=== PATIENT | female | born 1940 | race Caucasian/White ===

== ENCOUNTER 2018-12-24 12:13 | Inpatient (IN) ==
[2018-12-24] MEDS ORDERED: NALOXONE HCL 0.4 MG/1 ML VIAL/CARP IV PRN (12:33)
[2018-12-24] MEDS ORDERED: OXYCODONE HCL IR 5 MG TAB (IMMEDIATE RELEASE) PO PRN (12:33)
[2018-12-24] MEDS ORDERED: MAGNESIUM HYDROXIDE SUSP 30 ML UDC PO PRN (12:33)
[2018-12-24] MEDS ORDERED: ACETAMINOPHEN 325 MG TAB PO PRN (12:33)
[2018-12-24] MEDS ORDERED: bisacodyL 10 MG SUPP PR PRN (12:33)
--- NOTE | 2018-12-24 12:56 | History & Physical Report ---
Date of Service December 24, 2018 Assessment & Plan (1) Displaced fracture of right femoral neck: 78-year-old female with right femoral neck fracture, displaced, Garden 3. We discussed the risks of surgery in detail. Please see clinic note from today. She will be admitted for preoperative testing and will be on-call tomorrow to the operating room. She is on chronic aspirin therapy. Plan for DVT prophylaxis to be mechanical today. We will start routine DVT prophylaxis postoperatively. She should be nonweightbearing and out of bed with max assist. N.p.o. at midnight History of Present Illness Chief Complaint: Right hip femoral neck fracture Primary Care Provider: Erick Durant MD Otherwise healthy and moderately active female sustained a fall when her dog ran into her. This resulted in her falling on her posterior lateral aspect of her right hip, which resulted in immediate pain and difficulty weightbearing. She attempted to do home exercises and stretching however she persisted with pain with weightbearing. She denies any previous hip pain or diagnoses of arthritis. She reports the pain as sharp and located in her groin and the posterior lateral aspect of her buttock. She denies any numbness or tingling or gross deformity. She did remark that she noticed some bruising about the hip. Allergies Allergy/AdvReac Type Severity Reaction Status Date / Time No Known Allergies Allergy Verified 12/24/18 10:44 Home Medications Home Medications Medication Instructions Recorded Confirmed Type hydrocodone-acetaminophen [Doole] 1 - 2 tab PO Q4H PRN 12/07/17 12/07/17 History lisinopril 20 mg PO HS 12/07/17 12/24/18 History amlodipine 5 mg tablet 5 mg PO DAILY 12/24/18 12/24/18 History Past Med/Surg History Medical History Distal radius fracture, left Hypertension (Chronic) Cataract Squamous cell skin cancer, face Surgical History History of cataract extraction (Resolved) History of tonsillectomy (Resolved) 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 Social History Preferred Language: [place] Communication Ability: Effective Maintenance Technician 2Nd Shift Required: No Beliefs That Will Affect Care: None Current Living Situation: Spouse Feels Safe at Home: Yes Smoking Status: Former smoker Hx Alcohol Use: Yes Alcohol type: wine Hx Substance Use: Yes substance use type: does not use Review of Systems All systems reviewed & are unremarkable except as noted in HPI & below Physical Exam Physical Exam: She is in no acute distress, alert and oriented x3, and accompanied by her today She ambulates with an antalgic gait and shortened stance phase on the right lower extremity. Left hip: She can perform a straight leg raise with ease and has no discomfort with logroll. Right symptomatic hip: There is no skin compromise. She has pain with logroll in the supine position. She is difficulty with straight leg raise and has a knee lag with attempts. She has full active range of motion of her knee and no effusion. She is full active range of motion of her ankle. She is neur ovascular intact.
--- NOTE | 2018-12-24 16:03 | XRay Report ---
XR chest 1V portable HISTORY: preop, hx of smoking COMPARISON: None. FINDINGS: The lungs are hyperexpanded with apical predominant emphysematous changes. No focal lung co nsolidations to suggest pneumonia. No evidence for pulmonary edema. The heart is top normal in size. No pleural effusions. No pneumothorax. Question of a 5 mm nodular density within the right lung apex. This could be due to overlapping soft tissue. IMPRESSION: 1. No acute process within the chest. 2. Emphysema. 3. Questionable 5 mm nodular density at the right lung apex. Follow-up nonemergent PA and lateral vie ws of the chest are recommended for confirmation. Electronically signed by: Ryan Jiang M.D. 12/24/2018 4:01 PM
[2018-12-24 20:20] LABS: Basophils # (auto) 0.07 K/uL (0-0.2); Eosinophils # (auto) 0.26 K/uL (0-0.5); Eosinophils % (auto) 3.7 %; Hematocrit (blood only) 37.4 % (37-47); Hemoglobin 12.7 g/dL (12.0-16.0); Immature Granulocytes # (auto) 0.01 K/uL (0.00-0.02); Immature Granulocytes % (auto) 0.1 %; Lymphocytes # (auto) 1.92 K/uL (1.2-3.4); Lymphocytes % (auto) 27.1 %; Mean Corpuscular Hemoglobin 30.6 pg (25-34); Mean Corpuscular Volume 90.1 fL (80-100); Mean Platelet Volume 8.9 fL (7.4-10.4); Monocytes # (auto) 0.64 K/uL (0.11-0.59); Neutrophils # (auto) 4.18 K/uL (1.4-6.5); Neutrophils % (auto) 59.1 %; Platelet Count 271 K/uL (130-400); RDW Standard Deviation 42.5 fL (36.4-46.3); Red Blood Count 4.15 M/uL (4.2-5.4); White Blood Count 7.08 K/uL (4.8-10.8)
[2018-12-24 20:33] LABS: Partial Thromboplastin Ratio 0.9; Partial Thromboplastin Time 24.5 Seconds (21.0-31.0); Prothrombin Time 10.4 Seconds (9.0-12.0)
[2018-12-24 20:37] LABS: Albumin Level 3.6 gm/dl (3.4-5.0); BUN Creatinine Ratio 37.9 (10-20); Calcium 9.4 mg/dl (8.5-10.1); Creatinine Clr Calc Pharmacy 34.7 ml/min; Est GFR (African American) 67.3; Potassium 3.9 mmol/L (3.5-5.1)
[2018-12-24 20:40] LABS: Albumin Globulin Ratio 0.9 (0.9-2); Bilirubin,Total 0.3 mg/dl (0.2-1); Globulin 4.2 gm/dl (2.5-4.0); Total Protein 7.8 gm/dl (6.4-8.2)
[2018-12-24] MEDS: lisinopriL 20 MG TAB PO SCH (20:51)
[2018-12-24] MEDS: DOCUSATE SODIUM/SENNA 50/8.6MG TAB PO SCH (20:51)
[2018-12-24] MEDS ORDERED: AMLODIPINE BESYLATE 5 MG TAB PO SCH (21:00)
[2018-12-25] MEDS: LACTATED RINGER'S 1,000 ML IV SCH ×2 (00:03→10:10)
[2018-12-25] MEDS ORDERED: CEFAZOLIN 2000MG 2,000 MG/15 ML SYR IV SCH (06:00)
[2018-12-25] MEDS ORDERED: BUPIVACAINE 0.5 % 5 MG/1 ML PF 10ML VIAL ONE ×2 (07:38→15:18)
[2018-12-25] MEDS ORDERED: TRANEXAMIC ACID 1,000 MG in 0.9 % SODIUM CHLORIDE 100 ML IV SCH (10:00)
--- NOTE | 2018-12-25 11:33 | Orthopedic Progress Note ---
Date of Service December 25, 2018 Assessment & Plan (1) Displaced fracture of right femoral neck: Preop today for right hip hemiarthroplasty. Continue to be n.p.o. Plan for DVT prophylaxis after surgery. Braden Fowler reports no issues overnight. She did have a period of hypertension to systolic over 180 reported by the nurse to me however she reports no symptoms. She stated today that is common for her blood pressure to elevate when she is anxious. She states her blood pressure is better when she is out and about and walking. Today she reports no headache, palpitations, or syncope. She is comfortable. We had a conversation about surgery risks and benefits once again. She is ready to go. Review of Systems Review of Systems: All systems reviewed & are unremarkable except as noted in HPI & below Physical Exam Physical Exam: She is supine in bed No acute distress, alert and oriented, cooperative. Right lower extremity: The hip is no overlying skin trauma of concern. There is slight ecchymosis. Surgical signature was placed. She is full active range of motion her ankle. She is neurovascular intact Results & Data Vital Signs (Past 12 Hours) Vital Signs Temp Pulse Resp BP Pulse Ox 12/25/18 07:11 36.9 C 72 16 155/78 H 100 PG Care Time/CCT Total # of Minutes Spent Total Time Spent with Patient: Total time spent is greater than 50% in coordination of care (as documented) at patient's floor/unit and/or counseling patient:
[2018-12-25] MEDS ORDERED: THROMBIN FOR SOLN 20000 UNIT KIT ONE (14:57)
[2018-12-25] MEDS ORDERED: BACITRACIN INJ 50,000 UNIT VIAL ONE (14:57)
[2018-12-25] MEDS ORDERED: LIDOCAINE HCL 2% 2 ML VIAL/AMP(20MG/ML) INFIL ONE (15:03)
[2018-12-25] MEDS ORDERED: MIDAZOLAM HCL 1 MG/ML 2ML VIAL ONE (15:03)
[2018-12-25] MEDS ORDERED: fentaNYL citrate 100 MCG/2 ML VIAL ONE ×2 (15:03→17:47)
[2018-12-25] MEDS ORDERED: PROPOFOL IV EMULSION 10 MG/ML 20 ML VIAL IV ONE (15:03)
[2018-12-25] MEDS ORDERED: ONDANSETRON INJ 2 MG/ML 2 ML VIAL ONE (15:03)
[2018-12-25] MEDS ORDERED: BUPIVACAINE/EPINEPHRINE 0.25% 1:200,000 30 ML VIAL ONE (15:21)
--- NOTE | 2018-12-25 16:09 | Anesthesiology Consultation ---
Date of Service December 25, 2018 Assessment & Plan (1) Encounter for pre-operative examination: Chart Review Chart Review: Acceptable Risk for Surgery and Patient NOT seen in Pre Admission Testing Consults Requested none History Surgery Operation Date: 12/25/18 07:00 Proposed Procedures p Right Hip Hemiarthroplasty - Benson Campos Height/Weight Height: 5 ft 5 in Weight: 45.5 kg Allergies Allergy/AdvReac Type Severity Reaction Status Date / Time No Known Allergies Allergy Verified 12/24/18 10:44 Medications Home Medications Medication Instructions Recorded Confirmed Last Taken lisinopril 20 mg PO HS 12/07/17 12/24/18 12/23/18 20:00 amlodipine 5 mg tablet 5 mg PO DAILY 12/24/18 12/24/18 12/23/18 20:00 Active Medications Generic Name Dose Route Start Last Admin Trade Name Freq PRN Reason Stop Dose Admin Amlodipine Besylate 5 mg 12/24/18 21:00 12/24/18 20:51 Norvasc PO 01/23/19 20:59 5 mg HS JUS Administration Lactated Ringer's 1,000 mls @ 100 mls/hr 12/25/18 00:00 12/25/18 10:10 Lr IV 01/24/19 00:00 100 mls/hr .Q10H JUS Administration Lisinopril 20 mg 12/24/18 21:00 12/24/18 20:51 Zestril PO 01/23/19 20:59 20 mg HS JUS Administration Senna/Docusate Sodium 2 tab 12/24/18 21:00 12/24/18 20:51 Senokot S PO 01/23/19 20:59 Not Given HS JUS NPO Date Last Intake of Fluids: 12/24/18 Time Last Intake of Fluids: 23:59 Date Last Intake of Solids: 12/24/18 Time Last Intake of Solids: 23:59 Past Medical History Medical History Distal radius fracture, left Hypertension (Chronic) Cataract Squamous cell skin cancer, face Past Surgical History Surgical History History of cataract extraction (Resolved) History of tonsillectomy (Resolved) 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 Social History Smoking Status: Never smoker Hx Alcohol Use: Yes Alcohol type: wine alcohol intake frequency: holidays/special occasions only Hx Substance Use: No substance use type: does not use Physical Exam Vital Signs Last Vital Signs Temp 36.9 C 12/25/18 07:11 Pulse 72 12/25/18 07:11 Resp 16 12/25/18 07:11 BP 155/78 H 12/25/18 07:11 Pulse Ox 100 12/25/18 07:11 Testing Laboratory Results 12/24/18 20:11 12/24/18 20:11 PT 10.4 Seconds (9.0-12.0) 12/24/18 20:11 INR 1.0 (0.9-1.1) 12/24/18 20:11 APTT 24.5 Seconds (21.0-31.0) 12/24/18 20:11 Blood Type O Positive 12/24/18 20:11 Antibody Screen NEGATIVE 12/24/18 20:11 12/24/18 Unknown Urine Culture - Preliminary Urine,Clean Catch Pin-point growth present, reincubating.
[2018-12-25] MEDS ORDERED: PHENYLEPHRINE 100MCG/ML 5ML SYR ONE (16:12)
[2018-12-25] MEDS ORDERED: ePHEDrine sulfate 50 MG/ML AMP ONE (16:12)
[2018-12-25] MEDS ORDERED: BUPIVACAINE/EPINEPHRINE 0.25% 1:200,000 30 ML VIAL INFIL ONE (17:23)
[2018-12-25] MEDS ORDERED: ONDANSETRON INJ 2 MG/ML 2 ML VIAL IV PRN (17:40)
[2018-12-25] MEDS ORDERED: bisacodyL 10 MG SUPP PR PRN (17:40)
[2018-12-25] MEDS ORDERED: NALOXONE HCL 0.4 MG/1 ML VIAL/CARP IV PRN (17:40)
[2018-12-25] MEDS ORDERED: COUGH DROP (SUGAR FREE) LOZ 24 LOZ/1 BOX BUCCAL PRN (17:40)
[2018-12-25] MEDS ORDERED: OXYCODONE HCL IR 5 MG TAB (IMMEDIATE RELEASE) PO PRN ×2 (17:40)
[2018-12-25] MEDS ORDERED: MAGNESIUM HYDROXIDE SUSP 30 ML UDC PO PRN (17:40)
[2018-12-25] MEDS ORDERED: MoRPHine SULFATE 2 MG/ML CARP IV PRN (17:40)
--- NOTE | 2018-12-25 17:40 | Post Operative Brief Note ---
PG Immediate Post Op with CF Date of Surgery December 25, 2018 Pre & Post Diagnosis Operation Date: 12/25/18 07:00 Pre-Op Diagnosis: RIGHT FEMORAL NECK FRACTURE Post-Op Diagnosis: RIGHT FEMORAL NECK FRACTURE Procedure Operation Date: 12/25/18 07:00 Actual Procedures p Right Hip Hemiarthroplasty(Right) - Benson Campos Surgeon Benson Campos Review Coordinator MARK Estimated Blood Loss 250 Findings Consistent with Post-Op Diagnosis Specimens Specimen Description: Right Femoral Head Drains Dalton Catheter (16Fr. inserted without difficulty by Ha Shoemaker RN. Dalton returned clear yellow urine.)
[2018-12-25] MEDS ORDERED: ePHEDrine sulfate 50 MG/ML AMP IV PRN (17:43)
[2018-12-25] MEDS ORDERED: ATROPINE SULFATE 0.1 MG/ML 10ML SYR IV PRN (17:43)
[2018-12-25] MEDS: fentaNYL citrate 100 MCG/2 ML VIAL IV PRN ×2 (17:48→17:53)
--- NOTE | 2018-12-25 18:04 | XRay Report ---
XR hip RT min 2V HISTORY: 78 years-old Female Post-Operative implant position right hip total joint arthroplasty COMPARISON: Pelvis radiograph 12/24/2018 TECHNIQUE: 2 views of the right hip FINDINGS: Satisfactory positioning of the right hip total joint arthroplasty. Lateral skin johnny are noted. E xpected postsurgical soft tissue swelling and deep tissue air about the right hip. No acute fracture or retained foreign body. Vascular calcifications are noted. IMPRESSION: Satisfactory alignment of the right hip total joint arthroplasty. The above report was generated using voice recognition software. It may contain grammatical, syntax o r spelling errors. Electronically signed by: Hansel Mackenzie M.D. 12/25/2018 6:02 PM
[2018-12-25] MEDS ORDERED: MEPERIDINE HCL 25 MG/ML CARP ONE (18:05)
[2018-12-25] MEDS ORDERED: MEPERIDINE HCL 25 MG/ML CARP IV STA (18:11)
--- NOTE | 2018-12-25 18:13 | Operative Report ---
Post Operative Report Pre & Post Diagnosis Operation Date: 12/25/18 07:00 Pre-Op Diagnosis: RIGHT FEMORAL NECK FRACTURE Post-Op Diagnosis: RIGHT FEMORAL NECK FRACTURE Procedure Operation Date: 12/25/18 07:00 Actual Procedures p Right Hip Hemiarthroplasty(Right) - Benson Campos Surgeon Benson Campos Insulation Hoseman JOSEPH FLORES MD Estimated Blood Loss 250 Findings See Below Displaced femoral neck fracture Implants: All [employer] Bipolar hip hemiarthroplasty. Stemcemented LDFx size 11 Size 11 distal centralizer Bipolar cup and liner, size 44 Head neck 28/+3.5 Fluids Please see anesthetic record Specimens Femoral head sent to pathology Drains None Anesthesia Type MAC Spinal Regional Complications none Disposition Accompanied Patient To Recovery: Yes Disposition: Recovery Room Indications 78-year-old female sustained a fall directly onto her right hip 2 weeks ago resulting in immediate pain and subsequent difficulty weightbearing. She reported orthopedic clinic with persistent pain with attempts at weightbearing. She had been using crutches for assistance. Her exam and radiographs were con sistent with a femoral neck fracture. She was counseled on her treatment options and the recommendation for hemiarthroplasty. We discussed the risks and benefits of surgery in detail. The risks we discussed included but were not limited to infection, neurovascular injury, leg length discrepancy, need for repeat or revision surgeries, blood clots, and complications related anesthesia. She was a comedy by her that day. They both asked appropriate questions, demonstrated good understanding, and like to proceed with hemiarthroplasty to treat her right femoral neck fracture. Informed consent was documented in the clinic. She was admitted to the hospital that day. Description of Procedure On the day of surgery was agreed in the preoperative holding area with informed consent was reviewed and confirmed by the patient. The the operative extremity was identified by the patient and then signed by myself. She was then turned over anesthesia. Anesthesia took to the operating place upon the or table where sedation was induced. She was then positioned for regional spinal anesthesia. The spinal was placed and had excellent effect. She was then positioned for surgery in the lateral decubitus position of her right hip surgery. All bony prominences were well-padded. A Stulberg positioner was used to hold the pelvis firmly in the lateral decubitus position. The right lower extremity then prepped and draped in usual sterile fashion. Surgical timeout was called by the circulating nurse and verified by all present. Laterality was confirmed and WAS available and functional. In a box of infuse. Surgery was initiated by creating a standard posterior approach to the hip with a sharp incision over the greater trochanter measuring at least 8 cm. Dissection was carried out using Bovie electrocautery for hemostasis. Skin rakes were used to assist with retracting the skin layers. The fascia was then identified and exposed using a Rivera. We marked the midpoint to plan for a accurate repair of the IT band. Then used a 10 blade to incise to the IT band and carried up into the muscular tissues of the gluteus bobby. We spread in line with the raphe and carried the opening of the fascia down distally to approximately the gluteal sling. The Charnley self-retaining retractor was then placed to hold open the fascial incision. We then internally rotated the hip and exposed the bursa which was taken down using the Bovie. We exposed the short external rotators and the piriformis tendon which was identified. We then tagged the piriformis and short external hip rotators with separate Ti-Cron sutures. We then used a Bovie to take down the piriformis and short external rotators with caution for the nearby sciatic nerve. We internally rotated the hip to expose the hip capsule we removed soft tissue by scraping with a lap sponge. Then performed a capsulotomy in a T-shaped fashion across the base of the neck and extending along the course of the neck. We tacked the corners with 0 Ethibond sutures. The femoral neck fracture was then exposed. The hematoma was evacuated. The neck cut was then plan using the proprietary template from [employer]. Bovie electrocautery was used to ludin the planned neck cut approximately 1 fingerbreadth above the lesser trochanter. Sagittal saw was then used to complete this cut. We then used a rongeur to to remove excess bone on the lateral aspect of the femoral neck. We then worked to remove the femoral head first using a corkscrew and next using the tenaculum. We did have to rotate this to put tension of the ligament teres and then resected using a Bovie. Evaluated the acetabulum. The cartilage was in good condition. We did remove some excess capsular tissue in the most inferior aspect to ensure we did not have tissue blocking our reduction. Adequate hemostasis was achieved. We then sized the acetabulum using the ball shaped sizers. We had a good suction fit and fill using a 44 template. We plan for the 44 which gave us more neck length options. The Charnley retractor was then removed. The femoral intertrochanteric was then exposing the femoral retractors. The double foot retractor was placed under the femoral neck. Sharp Hohmann was placed behind the abductor sling. This exposed the entrance to the femoral canal well. We used a sample box maker to remove excess lateral femoral neck and access the intertrochanteric region. We then used a canal finder to access the canal. The lateralizing reamer was then placed into this canal and used to remove excess bone from the lateral aspect of the greater trochanter to ensure no induced varus. We then began our broach sequence. A size 8 broach was then used to initiate and find the canal. This was sunk easily. We then moved sequentially from a 9-10 to an 11 broach. This had adequate fill and fit. We used the broach to rasp the lateral aspect of our canal entrance. We then sunk the [address] for trialing. We put on a standard neck and 40 forehead. This appeared to be an adequate fit however the leg length was slightly shorter. For that reason we placed a +3.5 mm trial neck. This had adequate sabianist of leg length and excellent stability. Can externally rotate the foot in full extension approximately 30 degrees. Hip flexed past 90 with good stability and internally rotated approximately 60 degrees before liftoff inside the acetabulum. There was excellent mid flexion stability. We then removed our trial implants and began our canal preparation. After thorough pulse lavage of the canal. We placed a tampon suction device to clear the canal. We then thoroughly irrigated the acetabulum. We then placed a moist sponge in the acetabulum to protect it from debris and cement. Then begin her cement preparation on the back table. To back to block of cement was prepared with suction. After 1-1/2 minutes of mixing it was ready for use. Then loaded the cement gun and begin a retrograde fill of the canal after removal of the tampon suction device. We filled the canal in its entirety until the gun was pushed back due to cement pressure once it filled the entire canal digital pressure was used to pressurize the cement in the canal. We then placed a small amount of cement near the centralizer on the stem. We then placed the stem down in the canal and use the positioner device to ensure appropriate rotation. We repositioned to air in slight anteversion if anything. We then ensure the implant was down to the collar set on the calcar. We then held firm pressure which was motionless until the cement cured. All extraneous cement debris was then scraped out with a curette and hemostat to ensure no loose debris. Once the cement had cured on the back table and the stem appeared to be well- seated and cured we began to thoroughly irrigate the surgical site with bacitracin impregnated pulse lavage. We then began our closing sequence. This involve repair of her capsule layers using side to side repair in [id number] fashion of her longitudinal cut. We then tied the previous tagging sutures in the capsular corners together firmly. This repaired her back wall of the capsule well. A free needle passer tagging sutures from the piriformis and short external rotators back to the anatomic insertion by pushing through the bone and soft tissue with a free needle. The suture tails were then tied together to complete our repair. We irrigated once again thoroughly. We then positioned the hip in anatomic position and began closure of the IT band and fascial layer. For this we use #1 PDS suture in a running and interrupted fashion. Then thoroughly irrigated once again. We then closed the fatty layer using interrupted oh Vicryl suture in the deep fascial layers followed by interrupted 3-0 Polysorb suture in the subcuticular layer. The final skin closure was performed with johnny. The wound was then cleansed and dressed with sterile Xeroform, sterile gauze, and ABD. Foam tape was used to hold her dressing. The patient tolerated procedure well. She awoke from anesthesia without complication in the operating room. She was rolled supine and an abduction pillow was placed. She was transferred onto her hospital bed and then escorted to the PACU by anesthesia in stable condition. Disposition: She will be weightbearing as tolerated and begin physical therapy as soon as possible. We will use routine DVT prophylaxis consisting of Lovenox while inpatient and likely transition to oral aspirin therapy. We will get postoperative x-ray in the PACU. Surgical findings and plan ahead will be reviewed with the family member I attest to the content of the Intraoperative Record and any orders documented therein. Any exceptions are noted below.
--- NOTE | 2018-12-25 18:21 | Anesthesiology Progress Note ---
Date of Service December 25, 2018 Anesthesia Post Procedure Vital Signs Vital Signs: Temp Pulse Pulse Pulse Pulse Resp BP 12/25/18 18:10 83 15 161/86 H 12/25/18 18:00 90 17 159/81 H 12/25/18 17:50 91 H 17 158/90 H 12/25/18 17:40 37.0 C 93 H 12 137/84 12/25/18 15:11 36.7 C 81 18 179/88 H 12/25/18 07:11 36.9 C 72 16 155/78 H 12/24/18 23:08 36.8 C 69 18 155/77 H 12/24/18 22:35 75 192/88 H 12/24/18 20:47 82 174/83 H Pulse Ox 12/25/18 18:10 100 12/25/18 18:00 100 12/25/18 17:50 100 12/25/18 17:40 99 12/25/18 15:11 100 12/25/18 07:11 100 12/24/18 23:08 99 12/24/18 22:35 12/24/18 20:47 Pain Intensity Right Hip: Pain Intensity: 0 Transfer of Care Handoff Completed per policy Notes Mental Status: alert / awake / arousable Patient Amnestic to Procedure: Yes Nausea / Vomiting: adequately controlled Pain: adequately controlled Airway Patency, RR, SpO2: stable & adequate BP & HR: stable & adequate Hydration State: stable & adequate Neuraxial Anesthesia: was administered and sensory block is resolving Anesthetic Complications: no major complications apparent
[2018-12-25] MEDS: DOCUSATE SODIUM/SENNA 50/8.6MG TAB PO SCH (20:45)
[2018-12-25] MEDS: SODIUM CHLORIDE 0.9% 1000ML 1,000 ML IV SCH (20:47)
[2018-12-25] MEDS: SENNA 8.6 MG TAB PO SCH (20:47)
[2018-12-25] MEDS: CEFAZOLIN 2000MG 2,000 MG/15 ML SYR IV SCH (20:57)
[2018-12-25] MEDS: lisinopriL 20 MG TAB PO SCH (21:34)
[2018-12-26] MEDS: ACETAMINOPHEN 325 MG TAB PO PRN ×2 (01:44→09:27)
[2018-12-26] MEDS: CEFAZOLIN 2000MG 2,000 MG/15 ML SYR IV SCH (05:01)
[2018-12-26] MEDS: SODIUM CHLORIDE 0.9% 1000ML 1,000 ML IV SCH (06:21)
[2018-12-26 07:32] LABS: Basophils # (auto) 0.02 K/uL (0-0.2); Basophils % (auto) 0.2 %; Eosinophils # (auto) 0.02 K/uL (0-0.5); Eosinophils % (auto) 0.2 %; Hematocrit (blood only) 32.9 % (37-47); Hemoglobin 10.9 g/dL (12.0-16.0); Immature Granulocytes # (auto) 0.02 K/uL (0.00-0.02); Immature Granulocytes % (auto) 0.2 %; Lymphocytes # (auto) 0.87 K/uL (1.2-3.4); Lymphocytes % (auto) 10.6 %; Mean Corpuscular Hemoglobin 29.5 pg (25-34); Mean Corpuscular Hgb Conc 33.1 g/dL (32-36); Mean Corpuscular Volume 88.9 fL (80-100); Mean Platelet Volume 8.8 fL (7.4-10.4); Neutrophils # (auto) 6.37 K/uL (1.4-6.5); Neutrophils % (auto) 77.8 %; Platelet Count 228 K/uL (130-400); RDW Coefficient of Variation 12.7 % (11.5-14.5); RDW Standard Deviation 41.2 fL (36.4-46.3)
[2018-12-26 07:59] LABS: BUN Creatinine Ratio 31.2 (10-20); Creatinine Clr Calc Pharmacy 47.4 ml/min; Est GFR (African American) 95.8; Est GFR (Non-African American) 82.6; Potassium 4.4 mmol/L (3.5-5.1)
[2018-12-26 08:05] LABS: Prealbumin 15.9 mg/dl (20-40)
--- NOTE | 2018-12-26 09:00 | Anesthesiology Progress Note ---
Date of Service December 26, 2018 Anesthesia Post Procedure Vital Signs Vital Signs: Temp Pulse Pulse Resp BP Pulse Ox 12/26/18 07:31 37 C 77 16 138/71 100 12/26/18 03:17 36.9 C 78 16 156/68 H 98 12/25/18 23:26 36.8 C 84 16 137/67 95 12/25/18 21:47 36.9 C 78 18 138/72 95 12/25/18 20:55 36.2 C L 76 18 137/68 95 12/25/18 19:46 36.6 C 88 18 131/67 95 12/25/18 19:15 36.5 C 82 16 112/65 99 12/25/18 18:52 37.1 C 92 H 19 161/74 H 97 12/25/18 18:30 37.6 C H 86 20 145/85 H 98 12/25/18 18:20 79 16 117/98 99 12/25/18 18:10 83 15 161/86 H 100 12/25/18 18:00 90 17 159/81 H 100 12/25/18 17:50 91 H 17 158/90 H 100 12/25/18 17:40 37.0 C 93 H 12 137/84 99 12/25/18 15:11 36.7 C 81 18 179/88 H 100 Pain Intensity Right Hip: Pain Intensity: 0 Notes Mental Status: alert / awake / arousable and participated in evaluation Patient Amnestic to Procedure: Yes Nausea / Vomiting: adequately controlled Pain: adequately controlled Airway Patency, RR, SpO2: stable & adequate BP & HR: stable & adequate Hydration State: stable & adequate Neuraxial Anesthesia: was administered and sensory block resolved Anesthetic Complications: no major complications apparent and Pt Satisfied with anesthetic care
[2018-12-26] MEDS: AMLODIPINE BESYLATE 5 MG TAB PO SCH (09:27)
[2018-12-26] MEDS: ENOXAPARIN INJ 30 MG/0.3 ML SYR SQ SCH (09:27)
[2018-12-26] MEDS ORDERED: IBUPROFEN 200 MG TAB PO PRN (15:46)
--- NOTE | 2018-12-26 15:49 | Orthopedic Progress Note ---
Date of Service December 26, 2018 Assessment & Plan (1) Displaced fracture of right femoral neck: Making uncomplicated progress to postop day 1 after right hip hemiarthroplasty for displaced femoral neck fracture. Continue DVT prophylaxis equal to Lovenox 30 mg once daily per body weight. Pain control, we will proceed with PRN Tylenol and add motion if she prefers that. We will hold on aspirin until she is an outpatient. Disposition: Depending on PT and social work evaluation. She desires to go home. We will see if this is possible with home services. We will plan to transition DVT prophylaxis to aspirin 325 daily. Plan for dressing change tomorrow and potential discharge to home depending on needed services Subjective Janeth reports no significant events overnight. Pain is well controlled with no narcotics. She did states she is concerned about taking Tylenol prefer aspirin. Denies fevers chills nor shortness of breath Physical Exam Physical Exam: No acute distress, appears well. Seated in her chair at the bedside. Right lower extremity: Hip dressing is clean dry and intact. She is full range of motion of her knee ankle and toes. She is neurovascular intact distally. Results & Data Vital Signs (Past 12 Hours) Vital Signs Temp Pulse Resp BP Pulse Ox 12/26/18 15:06 36.9 C 83 16 138/74 97 12/26/18 07:31 37 C 77 16 138/71 100 PG Care Time/CCT Total # of Minutes Spent Total Time Spent with Patient: Total time spent is greater than 50% in coordination of care (as documented) at patient's floor/unit and/or counseling patient:
[2018-12-26] MEDS: SENNA 8.6 MG TAB PO SCH (19:16)
[2018-12-26] MEDS: DOCUSATE SODIUM/SENNA 50/8.6MG TAB PO SCH (19:17)
[2018-12-26] MEDS: lisinopriL 20 MG TAB PO SCH (19:17)
[2018-12-27] MEDS: AMLODIPINE BESYLATE 5 MG TAB PO SCH (08:02)
[2018-12-27] MEDS: ENOXAPARIN INJ 30 MG/0.3 ML SYR SQ SCH (08:02)
--- NOTE | 2018-12-27 10:07 | Orthopedic Progress Note ---
Date of Service December 27, 2018 Assessment & Plan (1) Displaced fracture of right femoral neck: Making excellent progress of postop day 2. She is done exceedingly well with physical therapy and I agree that she looks good to go home with visiting therapy. She will need daily dressing changes until she returns to see us in 2 weeks. We will plan for a follow-up at 2 weeks for repeat x-rays in our office at the [facility]. We will plan for daily aspirin DVT prophylaxis. Disposition: We will plan for discharge to home today. Subjective She has no reports of pain today. She was seen with her physical therapist in the room. They both reported that she walked in the hallways and did a full flight of stairs. Recommendation from physical therapy is that she can go home with visiting services. Patient is agreeable with this plan. She is excited to go home Review of Systems Review of Systems: She denies fevers, chills, significant hip pain, numbn ess/tingling, and syncope. Physical Exam Physical Exam: No acute distress, appears well. Seated in her chair at the bedside. Right lower extremity: Hip dressing is clean dry and intact. She is full range of motion of her knee ankle and toes. She is neurovascular intact distally. Results & Data Vital Signs (Past 12 Hours) Vital Signs Temp Pulse Resp BP BP Pulse Ox 12/27/18 08:00 37.0 C 82 17 139/85 99 12/26/18 23:21 36.6 C 79 16 132/74 98 PG Care Time/CCT Total # of Minutes Spent Total Time Spent with Patient: Total time spent is greater than 50% in coordination of care (as documented) at patient's floor/unit and/or counseling patient:
--- NOTE | 2018-12-27 10:45 | Discharge Summary ---
Date of Service December 27, 2018 Admission HPI Per Admitting Provider Otherwise healthy and moderately active female sustained a fall when her dog ran into her. This resulted in her falling on her posterior lateral aspect of her right hip, which resulted in immediate pain and difficulty weightbearing. She attempted to do home exercises and stretching however she persisted with pain with weightbearing. She denies any previous hip pain or diagnoses of arthritis. She reports the pain as sharp and located in her groin and the posterior lateral aspect of her buttock. She denies any numbness or tingling or gross deformity. She did remark that she noticed some bruising about the hip. Admission Exam Per Admitting Provider She was in no acute distress, pleasant, and conversant. She was having difficulty with ambulation due to pain when weightbearing on her right lower extremity. She had pain with logroll and attempted straight leg raise. She had no significant shortening or external rotation of the lower extremity in the supine position. Principal Diagnosis Right hip displaced femoral neck fracture Discharge Exam She was in no acute distress, appears very well. Comfortable and with good color. Right lower extremity showed a clean dry and intact freshly change dressing. She had active motion of her knee and ankle. She is neurovascularly intact Discharge Data Allergies Allergy/AdvReac Type Severity Reaction Status Date / Time No Known Allergies Allergy Verified 12/24/18 10:44 Consultations 12/24/18 12:33 Consult Case Management - Discharge Planning Routine 12/25/18 17:40 Consult Case Management - Discharge Planning Routine Procedures Performed Operation Date: 12/25/18 07:00 Actual Procedures p Right Hip Hemiarthroplasty(Right) - [facility] Course (1) Displaced fracture of right femoral neck: She underwent surgery for a right hip hemiarthroplasty on 25 December 2018. She made remarkably fast progress in regards to pain and mobilization. On postoperative day 2 she was found to be stable, with minimal need for pain management, and ambulatory with her walker and on stairs through her physical therapy visits. She was deemed stable for discharge to home with home services. She will follow-up in 2 weeks for repeat x-rays and evaluation at the orthopedic clinic. (2) Hypertension: She had labile hypertension evident through her hospital course. In particular, she did preoperatively she experienced some systolic blood pressures reaching 180. We reviewed her previous inpatient stays and her blood pressure trends were very similar. After surgery, her blood pressure was very stable in a more acceptable level We talked with her and her family and recommended following up with her primary care physician after discharge to review her hypertension management. Total Time Total Time Spent Total Time Spent (In Minutes): 30 Total Time Includes: Examination of the Patient, Discharge Planning, Medication Reconciliation, Communication With Other Providers and Other Discharge Plan Discharge Items Patient Disposition: Home - Home Health Services Reason For Visit: RIGHT SIDED FEMORAL NECK FRACTURE Discharge Diagnosis: Right hip femoral neck fracture status post hemiarthroplasty Activity: Per Instructions section Lifting: None and Wait until after follow-up appointment Bathing Comment: May shower on 12/29/2018 if the wound is without drainage for 24 hours. If drainage persists, continue dressing changes and keep the area clean and dry. If drainage continues beyond January 01, please call the orthopedic surgery office. Weightbearing: Full weightbearing Non-emergency contact: Primary Care Provider and Surgeon Call non-emergency contact if: you have any medication questions, your symptoms worsen, your pain is not controlled, your pain is worsening, your pain is unusual for you, your pain is concerning for you, you have a fever, your temperature is above 101.5, your wound has increased redness, your wound has increased drainage and your wound pain has increased Follow-up/Referrals: Benson Campos [Surgeon] - Erick Durant MD [Primary Care Provider] - Diet: Regular Addtl Attending Provider Instructions: Please keep your wound clean and dry. Do not remove any of the johnny. [place] were removed at your follow-up appointment with orthopedic surgery. Please continue daily dressing changes until your follow-up appointment. If there is no drainage onto the dressing for total of 24 hours, you may shower after 5 days from surgery. Allow soap and water to run over the incision, no scrubbing, and pat dry. Do not submerse (sitting in bathtub, hot tub, jacuzzi, pool, etc) the wound for at least 3 weeks. You may bear weight on your lower extremities as tolerated. Please use the walker or as instructed by physical therapy. For pain control please use Tylenol as needed. You can also apply ice to the surgical site. Pending Studies at Discharge: Yes Studies:: Repeat hip x-ray at 2 weeks in the orthopedic clinic Stand-Alone Forms: My [facility] [place] Medications and [facility] Order Prescriptions: New acetaminophen [Mapap (acetaminophen)] 325 mg Tablet 650 mg PO Q6H 60 Days Qty: 100 RF: 0 aspirin 325 mg tablet 325 mg PO DAILY Qty: 60 RF: 0 Continued amlodipine 5 mg tablet 5 mg PO DAILY RF: 0 lisinopril 20 mg tablet 20 mg PO HS RF: 0 Discharge Orders: Discharge Order (Routine); Ordered 12/27/18 Ordered By: Benson Campos Admission Data Admit Date/Time: 12/24/18 14:42 Attending Provider: Benson Campos Admit Provider: Benson Campos Primary Care Provider: Erick Durant Other Providers: [facility]
== END 2018-12-27 12:45 | disposition home health service (06) | DRG 470 ==
LOC: 3W 14:42